=== PATIENT | male | born 1985 | race Caucasian/White ===

== ENCOUNTER → 2023-11-02 03:17 | Outpatient (CLI) | payer OTHER, SELFPAY ==
--- NOTE | 2023-11-02 07:45 | DI.US_ITS ---
Exam(s) US NEEDLE LOCAL OTHER WO RAD EXAM: US NEEDLE LOCAL OTHER WO RAD CLINICAL HISTORY: thyroid nodule,ultrasound guided bx,e04.1. TECHNIQUE: Ultrasound was provided for Dr. Chicas for guidance with performing thyroid biopsy. COMPARISON: US US THYROID from 10/05/2023 FINDINGS: The previously noted right thyroid nodule was identified. Images show a needle extending into the n odule. Please see procedure note for details. DATA REPOSITORY:
--- NOTE | 2023-11-02 11:25 | PAPNONF_PTH ---
PATIENT: Marco Verduzco LOC: [facility] U#:[id number] AGE/SX: 39/M ROOM: RE11/02/[address]: Edda Horner : 1985 BED: DIS: SPEC #: [id number] RECD: 11/02/23 12:59 STATUS: SALVADOR REQ #: [id number] MARY: 11/02/23 11:[address]: Edda Horner DEPT: [facility] Cytology RECD BY: Antonette Franco ENTERED: 11/02/23 13:00 SP TYPE: GERONIMO CALI DR: Larry Montiel DO Tissues: 1 - BODY FLUID CYTO-FINE NEEDLE ASPIRATE-[facility] Procedures: BODY FLUID CYTO-FINE NEEDLE ASPIRATE-[facility] Comments: [id number] (PATH FNA CONSULT) (REFRIGERATED)
--- NOTE | 2023-11-02 11:51 | W.PROCNOTE ---
Date of service: 11/02/23 Time of Service: 11:51 Procedure Note Date of procedure: 11/02/23 Procedure: Ultrasound-guided FNA, right thyroid nodule, pathology present Surgeon/Proceduralist/Physician: Alejandro Chicas Procedure Diagnosis: Right thyroid nodule meeting criteria for biopsy Procedure Indications: The patient has a right-sided thyroid nodule meeting criteria for biopsy. Options were explained to the patient regarding further management. They elected to undergo the above procedure. Risks including bleeding, infection, recurrence, need for further treatment or surgery were discussed at length. Verbal consent was obtained. Procedure Description: The patient was positioned in a supine position with his neck slightly extended. He was prepped and draped in appropriate fashion and 1% lidocaine with 1/100,000 epinephrine injected into the skin and subcutaneous tissues overlying the nodule once the nodule was localized with ultrasound. 25-gauge needle was passed into the thyroid nodule, and passed repeatedly through the thyroid nodule parenchyma. Once adequate sample was judged to be obtained, this was handed to pathology who verified adequate cellularity. 1 additional pass was made for increased cellular availability and then 2 passes were made for potential Afirma testing. All of these were done under ultrasound guidance. After ensuring adequate hemostasis, a sterile dressing was applied the patient was allowed to sit and then stand and ambulate. His vital signs remained stable throughout. He will remove the bandage in a couple of hours. He will call with any signs of infection or any concerns. He will avoid strenuous activity for the next couple of hours and is aware he should not drive today as he took lorazepam. He will call if he does not hear from me within 1 week with regard to pathology. He had no further questions. His significant other had no further questions. They are comfortable with the plan
== END ==
PROVIDERS: PCP Family Medicine; Visit Provider Registered Nurse Maternal Newborn
DX: D44.0 Neoplasm of uncertain behavior of thyroid gland (principal)
CPT/HCPCS: 10005; 76942; 88104

== ENCOUNTER 2023-12-23 14:53 | Outpatient (CLI) | payer OTHER, SELFPAY ==
[2023-12-23 12:07] LABS: ALT 35 U/L (16-63); AST 23 U/L (15-37); Albumin 3.8 g/dL (3.4-5.0); Alkaline Phosphatase 77 U/L (46-116); Anion Gap 6.2 mmol/L (3-11); BUN 18 mg/dL (7-18); Bilirubin, Total 0.5 mg/dL (0.2-1.0); CO2 31.8 mmol/L (21.0-32.0); CREATININE 0.9 mg/dL (0.70-1.30); Calcium 9.3 mg/dL (8.5-10.1); Chloride 105 mmol/L (98-107); Estimated GFR 111.42 (mL/min/1.73m2); Glucose 92 mg/dL (74-106); Potassium 3.7 mmol/L (3.5-5.1); Sodium 143 mmol/L (136-145); Total Protein 7.8 g/dL (6.4-8.2)
[2023-12-23 12:15] LABS: Calculated LDL 105 mg/dL (<100); Cholesterol 166 mg/dL (<200); HDL Cholesterol 49 mg/dL (40-60); TSH (W/Ref FT4) 0.99 uIU/mL (0.36-3.74); Triglyceride 62 mg/dL (<150)
[2023-12-24 08:42] LABS: Hepatitis C Ab w Rflx HCV PCR Negative (Negative)
== END 2023-12-23 14:54 | disposition home or self-care (01) ==
LOC: LBO 14:53
PROVIDERS: Registered Nurse Maternal Newborn; PCP Family Medicine; Visit Provider Otolaryngology
DX: E04.1 Nontoxic single thyroid nodule (principal); Z13.6 Encounter for screening for cardiovascular disorders; Z11.3 Encounter for screening for infections with a predominantly sexual mode of transmission
CPT/HCPCS: 80053; 80061; 86803; 84443

== ENCOUNTER 2024-05-11 09:30 | Day surgery (SDC) | payer OTHER, SELFPAY ==
[2024-05-11] MEDS: Lactated Ringers 1,000 ML 80 ML IV (09:35)
[2024-05-11 09:48] VITALS: BP 120/82; PULSE 61; RESP 16; TEMP 36.6; O2SAT 99
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
[2024-05-11 09:58] VITALS: BMI 26.1
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
--- NOTE | 2024-05-11 10:17 | W.PM.DSUDISC ---
Date of service: 05/11/24 Time of Service: 10:17 Discharge Plan Disposition Patient Disposition: Home Condition: Good Discharge Details Attending Provider: Santo Proctor Primary Care Provider: Larry Montiel Home Meds and New Rx's Prescriptions: No Action cyanocobalamin (vitamin B-12) 1,000 mcg capsule 1,000 mcg PO DAILY cholecalciferol (vitamin D3) 50 mcg (2,000 unit) capsule 50 mcg PO DAILY famotidine 20 mg tablet 20 mg PO DAILY pantoprazole [Protonix] 40 mg tablet,delayed release (DR/EC) 40 mg PO DAILY Qty: 30 12RF Discharge Instructions Additional Instructions: FINDINGS: You have a moderate?size hiatal hernia. It is a type I hiatal hernia. The Hill grade classification for the opening is grade 2. The hernia slides about 3-4 cm overall. It is borderline?large. This is the cause of your acid reflux with near?certainty. You should follow-up in the surgery office to discuss next steps. You should also call and schedule your barium esophagram/swallow study that has been ordered for you. Stand Alone Forms: Anesthesia Discharge InstPardeep Shetty (DSSeymour) Activity:: Activity as Tolerated Shower/Bathe:: 24 hours
--- NOTE | 2024-05-11 10:24 | STOM_PTH ---
PATIENT: Marco Verduzco LOC: [facility] U#:[id number] AGE/SX: 38/M ROOM: RE05/11/[address]: Santo Proctor : 1985 BED: DIS: 05/11/2024 SPEC #: [id number] RECD: 05/11/24 12:53 STATUS: SALVADOR REQ #: [id number] MARY: 05/11/24 10:[address]: Santo Proctor DEPT: Surgical Specimen RECD BY: Antonette Franco ENTERED: 05/11/24 12:55 SP TYPE: STOMACH OTHR DR: Larry Montiel DO Tissues: 1 - STOMACH BIOPSY 2 - STOMACH BIOPSY 3 - ESOPHAGUS BIOPSY Procedures: GROSS AND MICRO LEVEL 4 Comments: [id number]
[2024-05-11 10:34] VITALS: BP 105/68; PULSE 84; RESP 18; TEMP 36; O2SAT 93
[2024-05-11 11:06] VITALS: BP 112/83; PULSE 80; RESP 16; TEMP 36.5; O2SAT 98
--- NOTE | 2024-05-11 11:16 | W.ANESPOSTOP ---
Postoperative Evaluation Date, Time and Location Date Performed: 05/11/24 Time Performed: 11:16 Patient Location: Day Surgery Unit Vital Signs Most Recent Imported Vital Signs: Most Recent Vital Signs Temp Pulse Resp BP Pulse Ox 36.5 C 80 16 112/83 98 05/11/24 11:06 05/11/24 11:06 05/11/24 11:06 05/11/24 11:06 05/11/24 11:06 Pain Score Most Recent Pain Score: Most Recent Pain Score Pain Level 0 05/11/24 11:06 Assessment Mental Status: Awake (Alert & Oriented to Patient Baseline) Airway and Respiratory Function: Patent airway with normal (patient baseline) respiratory exam Cardiovascular Function: Hemodynamically Stable Hydration Status: Adequately Hydrated Nausea & Vomiting: No Nausea or Vomiting Pain: Pt. Denies Any Pain Peripheral Nerve Block: Patient did not receive a nerve block
== END 2024-05-11 11:44 | disposition home or self-care (01) ==
PROVIDERS: PCP Family Medicine; Visit Provider Student in an Organized Health Care Education/Training Program
PROC: 0DJ68ZZ Inspection of Stomach, Via Natural or Artificial Opening Endoscopic (ICD-10-PCS; CPT 43235; principal; 2024-05-11 10:30)
DX: K21.9 Gastro-esophageal reflux disease without esophagitis (principal); K44.9 Diaphragmatic hernia without obstruction or gangrene; R05.1 Acute cough; K31.89 Other diseases of stomach and duodenum; K22.89 Other specified disease of esophagus
CPT/HCPCS: 43239; 00123; 88305; J2704

== ENCOUNTER 2024-05-17 00:58 | Outpatient (CLI) | payer OTHER, SELFPAY ==
--- NOTE | 2024-05-17 09:35 | DI.RAD_ITS ---
Exam(s) RF BARIUM SWALLOW EXAM: RF BARIUM SWALLOW CLINICAL HISTORY: worsening reflux,GERD,HIATAL HERNIA,K21.9,K44.9 TECHNIQUE: 2D and realtime digital imaging was performed. CONTRAST MATERIAL: Thick and thin barium and barium tablet were administered. COMPARISON: No exams were available for comparison FINDINGS: The PA and lateral chest films show normal heart size and clear lung lund. An azygos lobe, normal variant is incidentally noted. The lateral customer service advisor view of the neck is unremarkable. Esophagus: The patient swallowed barium without difficulty. Noevidence for mucosal erosions. Nofol d thickening. No mass is visible. Nostricture. Motility: There is a normal primary stripping wave. No tertiary contractions were noted. There is no hiatal hernia. Nogastroesophageal reflux was observed during the exam. IMPRESSION: Normal barium swallow. RADIATION DOSE DELIVERED: anel Munoz=9.64 mGy
[2024-05-17] MEDS: Simethicone/Sod Bicarb/Cit Ac, 4 gram PACKET 1 PACKET PO (09:40)
[2024-05-17] MEDS: Barium Sulfate 700 MG TAB PO (09:41)
[2024-05-17] MEDS: Barium Sulfate 98% W/W 140 ML BTL PO (09:42)
[2024-05-17] MEDS: Barium Sulfate 60% W/V 355 ML BTL PO (09:43)
== END 2024-05-17 01:18 ==
LOC: DI 00:58
PROVIDERS: PCP Family Medicine; Visit Provider Surgery
DX: K21.9 Gastro-esophageal reflux disease without esophagitis (principal); K44.9 Diaphragmatic hernia without obstruction or gangrene
CPT/HCPCS: 74221; J3490